=== PATIENT | male | born 1940 | race Caucasian/White ===

== ENCOUNTER 2017-01-27 13:20 | Emergency (ER) ==
[2017-01-27 13:54] VITALS: BP 124/51
--- NOTE | 2017-01-27 14:02 | ED EKG INTERP ---
EKG Interpretation - EKG Time of EKG reading by physician:: 13:27 EKG Read and Signed by:: Fabio Pradhan EKG Interpretation (*Must complete 3 of following elements*): Abnormal (anerior infarct age undetermined; ST and T wave abnormality consider lateral ischemia) Rate: 39 Rhythm: marked sinus bradycardia Conesus: normal QRS: poor R wave progression Attestation - Scribe Verification/Attestation Scribe:: Darryl Cast Acting as Scribe for:: Fabio Pradhan Scribe documention review:: This chart was documented by a scribe and accurately reflects the service the provider performed and the decisions made by the provider.
[2017-01-27] MEDS ORDERED: NITROGLYCERIN SL PRN (14:23)
[2017-01-27] MEDS ORDERED: ASPIRIN PO STA (14:23)
[2017-01-27 14:44] LABS: BASO% 0.1 % (0.0-0.8); EOS# 0.06 X1000 (0.0-0.7); EOS% 0.6 % (0.0-10.0); HEMATOCRIT 29.7 % (42.0-52.0); HEMOGLOBIN 9.1 g/dL (14.0-18.0); IMM GRAN# 0.02 X1000 (0.0-0.04); IMM GRAN% 0.2 % (0.0-0.5); LYMPH% 10.8 % (20.5-51.1); MANUAL DIFF NEEDED? YES; MCHC 30.6 g/dL (33-37); MCV 107.6 FL (81-99); MONO# 0.42 X1000 (0.11-0.59); MONO% 4.1 % (1.7-9.3); NEUT% 84.2 % (42.2-75.2); PLT 251 X1000 (130-400); RBC 2.76 XMIL (4.7-6.1)
--- NOTE | 2017-01-27 14:54 | EKG Report ---
Test Performed on : 01/27/2017 1:27:14 PM Test Reason : Chest Pain Blood Pressure : / mmHG Vent. Rate : 039 BPM Atrial Rate : 039 BPM P-R Int : 180 ms QRS Dur : 078 ms QT Int : 536 ms P-R-T Axes : 077 -26 074 degrees QTc Int : 431 ms Marked sinus bradycardia. Anterior infarct (cited on or before 08-NOV-2016) ST & T wave abnormality, consider lateral ischemia Abnormal ECG When compared with ECG of 13-NOV-2016 05:57, Questionable change in initial forces of Septal leads Nonspecific T wave abnormality no longer evident in Inferior leads T wave inversion now evident in Anterior leads Unconfirmed Result
[2017-01-27 15:04] LABS: ALBUMIN 3.5 g/dL (3.5-5.0); CALCIUM 8.3 mg/dL (8.8-10.2); MAGNESIUM 2.6 mg/dL (1.5-2.7); POTASSIUM 4.9 mmol/L (3.5-5.1); TOTAL BILIRUBIN 0.25 mg/dL (0.20-1.00); TOTAL PROTEIN 6.4 g/dL (6.3-8.3)
[2017-01-27 15:08] LABS: INR 0.96; PROTIME 9.8 Seconds (9.2-11.7); PTT 24.8 Seconds (22.0-36.0)
[2017-01-27 15:20] LABS: BANDS 2 % (0-1); LYMPHS 14 % (21-51)
[2017-01-27 15:26] LABS: HYPOCHROM 1+
[2017-01-27 15:27] LABS: LARGE PLATELETS OCCASIONAL
--- NOTE | 2017-01-27 15:40 | Diag Imaging Result Document ---
PROCEDURE NAME: CHEST-2 VIEWS - 01/27/2017 2 VIEWS OF THE CHEST: FINDINGS: The inspiration is not as optimal as on 11/15/2016. The pleural fluid collection which was present previously has resolved. Otherwise, there has been no significant change in the appearance of the chest. IMPRESSION: Resolution of right pleural effusion. Otherwise, stable since 11/15/2016.
[2017-01-27 16:15] LABS: FREE T4 0.32 ng/dL (0.93-1.70)
--- NOTE | 2017-01-27 16:41 | PROVIDER DOCUMENTATION ---
HPI-Syncope/Dizziness - General Chief Complaint: Dizziness Stated Complaint: LOW HEART RATE Time Seen by Provider: 01/27/17 15:35 Source: patient, family Allergies/Adverse Reactions: Patient Allergies Allergy/AdvReac Type Severity Reaction Status Date / Time No Known Allergies Allergy Unverified 01/27/17 13:41 Home Medications: Home Medication List Medication Instructions Recorded Confirmed Last Taken Type Lidocaine/Prilocaine Cream [Emla 1 applicatn TOP PRN PRN 10/04/16 11/07/16 Unknown History Cream] Ondansetron HCl [Zofran] 1 - 2 mg PO Q8H PRN PRN 10/04/16 11/07/16 Unknown History Prochlorperazine [Compazine] 10 mg PO Q6H PRN PRN 10/04/16 11/07/16 Unknown History Hydrocodone/Acetaminophen [[place] 10 mg PO Q8H PRN PRN 10/24/16 11/07/16 21:00 History 10-325 Tablet] Loperamide [Imodium] 2 mg PO Q4H PRN PRN #0 capsule 10/26/16 11/07/16 Unknown Rx Amiodarone [Cordarone] 200 mg PO BID #30 tablet 11/18/16 Unknown Rx Amiodarone [Cordarone] 200 mg PO DAILY #30 tablet 11/18/16 Unknown Rx Aspirin 81 mg PO DAILY #30 chewtab 11/18/16 Unknown Rx Carvedilol [Coreg] 3.125 mg PO BID #60 tablet 11/18/16 Unknown Rx Dronabinol [Marinol] 2.5 mg PO BID #60 capsule 11/18/16 Unknown Rx ENALApril [Vasotec] 10 mg PO BID #60 tablet 11/18/16 Unknown Rx Furosemide [Lasix] 20 mg PO Q48H #30 tablet 11/18/16 Unknown Rx Spironolactone [Aldactone] 12.5 mg PO DAILY #60 tablet 11/18/16 Unknown Rx - History of Present Illness-Syncope/Dizzy Nature of Presenting Problem: 76 y/o M referred from the chemotherapy center after noticing that he is having a low heart rate. Patient stated that he just feel weak from the chemo session but does not have any other complaint. He denies dizziness, light headedness, SOB, chest pain. Prior Episodes: reports: no prior history Onset/Duration: reports: abrupt Timing: reports: gone now Position/Activity at time of episode: reports: standing Symptoms prior to episode: reports: none Loss of Consciousness: no loss of consciousness Current Symptoms: reports: none/feels normal Recently Seen Here or By Another Healthcare Provider: No - Dizziness Dizziness Related Current/Associated Symptoms: reports: weakness Any recent trauma/injury?: reports: none Review of Systems - Adult - REVIEW OF SYSTEMS - ADULT ROS:: ROS per family Constitutional: reports: fatique Eyes: reports: no symptoms reported Ears, Nose, Mouth & Throat: reports: no symptoms reported Cardiovascular: reports: irregular heart rate Respiratory: reports: dyspnea on exertion Gastrointestinal: reports: no symptoms reported Genitourinary: reports: other (anuria secondary to BPH s/p urinary catheter placement) Neurological: denies: dizziness/vertigo, headache/migraines, seizure, slurred speech, syncope Psychiatric: reports: no symptoms reported Endocrine: reports: other (mouth dryness) Hematologic/Lymphatic: reports: other (on chemotherapy for colon CA) Past History - Adult - PAST MEDICAL HISTORY-ADULT Review of Records: reports: Nursing Assessment Review, Medications Reviewed Major Childhood Illnesses: reports: other (colon CA ) Cardiovascular: reports: HTN Respiratory: reports: denies history Gastrointestinal: reports: other Genitourinary: reports: retention, other (BPH) Endocrine/Immune: reports: cancer - PRIOR SURGERIES/PROCEDURES Surgical/Procedure History: reports: EGD, colonoscopy, bowel surgery - PRIOR HOSPITALIZATIONS Prior Hospitalizations: reports: for other non-related Physical Exam-General - PHYSICAL EXAM-ADULT Initial Vital Signs Reviewed: Yes - CONSTITUTIONAL General Appearance: moderate distress, cachetic - EYES Eyes: PERRL/EOMI - HEAD, EARS, NOSE, MOUTH & THROAT HENMT: normocephalic/atraumatic - NECK Neck: full range of motion, supple - RESPIRATORY Respiratory: decreased breath sounds, rales - CARDIOVASCULAR Cardiovascular: bradycardia - GASTROINTESTINAL (ABDOMEN) Abdominal Exam: non tender, soft, other (colostomy) Progress - PLAN OF CARE/RESULTS Progress/Plan/Lab Results: Vital Signs - 24 hr 01/27/17 01/27/17 13:28 13:41 Temperature 97.5 F L Pulse Rate 39 L 42 L Respiratory 18 20 Rate Blood Pressure 110/55 124/51 O2 Sat by Pulse 93 L 94 L Oximetry Laboratory Tests 01/27/17 01/27/17 01/27/17 14:20 14:20 14:20 WBC 10.21 RBC 2.76 L Hgb 9.1 L Hct 29.7 L MCV 107.6 H MCH 33.0 H MCHC 30.6 L RDW Std Deviation 18.7 H Plt Count 251 MPV 11.0 H Immature Gran % (Auto) 0.2 Neut % (Auto) 84.2 H Lymph % (Auto) 10.8 L [place] % (Auto) 4.1 Eos % (Auto) 0.6 Baso % (Auto) 0.1 Immature Gran # (Auto) 0.02 Neut # (Auto) 8.60 H Lymph # (Auto) 1.10 L [place] # (Auto) 0.42 Eos # (Auto) 0.06 Baso # (Auto) 0.01 Segmented Neutrophils 82 H Band Neutrophils 2 H Lymphocytes 14 L Atypical Lymphocytes 2.0 Hypochromia 1+ Large Platelets OCCASIONAL Poikilocytosis 1+ Anisocytosis 1+ Macrocytosis 1+ PT INR PTT (Actin FS) Sodium 141 Potassium 4.9 Chloride 105 Carbon Dioxide 24 L Anion Gap 12 BUN 54 H Creatinine 1.7 H Estimated GFR/1.73 m2 39 BUN/Creatinine Ratio 32 Glucose 125 H Calculated Osmolality 297 Calcium 8.3 L Magnesium 2.6 Total Bilirubin 0.25 AST 27 ALT 21 Alkaline Phosphatase 94 Creatine Kinase 95 Troponin T [id number]-Crogpjbkuey Pept 2764 H Total Protein 6.4 Albumin 3.5 Globulin 2.9 Albumin/Globulin Ratio 1.2 TSH Free T4 01/27/17 01/27/17 01/27/17 14:20 14:20 14:20 WBC RBC Hgb Hct MCV MCH MCHC RDW Std Deviation Plt Count MPV Immature Gran % (Auto) Neut % (Auto) Lymph % (Auto) [place] % (Auto) Eos % (Auto) Baso % (Auto) Immature Gran # (Auto) Neut # (Auto) Lymph # (Auto) [place] # (Auto) Eos # (Auto) Baso # (Auto) Segmented Neutrophils Band Neutrophils Lymphocytes Atypical Lymphocytes Hypochromia Large Platelets Poikilocytosis Anisocytosis Macrocytosis PT 9.8 INR 0.96 PTT (Actin FS) 24.8 Sodium Potassium Chloride Carbon Dioxide Anion Gap BUN Creatinine Estimated GFR/1.73 m2 BUN/Creatinine Ratio Glucose Calculated Osmolality Calcium Magnesium Total Bilirubin AST ALT Alkaline Phosphatase Creatine Kinase Troponin T 0.012 Trw-O-Wqgsodxsnce Pept Total Protein Albumin Globulin Albumin/Globulin Ratio TSH 89.97 H Free T4 0.32 L - EKG 1 Rhythm: normal - XRAY 1 XRAY: Bilateral Impression: Abnormal XRAY Interpretation: resolving pleural effusion Departure - Departure Time of Disposition Order: 16:48 DIAGNOSIS: Sinus bradycardia, Acute renal failure (ARF), Hypothyroidism Disposition: AGAINST MEDICAL ADVICE 07 Certified Medical Emergency: Emergent Condition: Poor Additional Instructions: follow-up with PCP tomorrow Return back to ER as needed
[2017-01-27] MEDS ORDERED: HEPARIN ONE (16:42)
== END 2017-01-27 16:53 | disposition left against medical advice (07) ==
LOC: ED 13:20
DX: R00.1 Bradycardia, unspecified (principal); N17.9 Acute kidney failure, unspecified; E03.9 Hypothyroidism, unspecified; R94.31 Abnormal electrocardiogram [ECG] [EKG]; R53.1 Weakness; R53.83 Other fatigue; R06.00 Dyspnea, unspecified; R34 Anuria and oliguria; Z79.899 Other long term (current) drug therapy; R68.2 Dry mouth, unspecified; I10 Essential (primary) hypertension; C18.9 Malignant neoplasm of colon, unspecified; Z93.3 Colostomy status
CPT/HCPCS: 71020; 80053; 82550; 82948; 83735; 83880; 84439; 84443; 84481; 84484; 85025; 85610; 85730; 93005; 99284